=== PATIENT | female | born 1945 | race Caucasian/White ===

== ENCOUNTER 2024-10-15 14:04 | Inpatient (IN) | payer MEDICARE, BC ==
[~2024-10-15] VITALS: Ht 170.2 cm; Wt 57.2 kg
[2024-10-15 14:27] LABS: BASOPHILS % (AUTO) 0.5 % (0.0-2.0); EOSINOPHILS # (AUTO) 0.2 K/uL (0.0-0.7); EOSINOPHILS % (AUTO) 3.1 % (0.0-6.0); HEMATOCRIT 34 % (33-45); HEMOGLOBIN 11.1 g/dL (11.5-14.8); LYMPHOCYTES # (AUTO) 1.5 K/uL (0.8-4.8); LYMPHOCYTES % (AUTO) 25.5 % (20.0-44.0); MEAN CORPUSCULAR HEMOGLOBIN 31 PG (26.0-33.0); MEAN CORPUSCULAR HGB CONC 33 g/dl (31.0-36.0); MEAN CORPUSCULAR VOLUME 96 fL (82-100); MONOCYTES # (AUTO) 0.5 K/uL (0.1-1.30); MONOCYTES % (AUTO) 9.6 % (2.0-12.0); NEUTROPHILS # (AUTO) 3.5 K/uL (1.8-8.9); NEUTROPHILS % (AUTO) 61.3 % (43.0-81.0); PLATELET COUNT (AUTO) 250 K/uL (150-450); RED BLOOD CELL COUNT(AUTO) 3.57 MIL/uL (4.0-5.2); RED CELL DISTRIBUTION WIDTH 14.9 % (11.5-15.0); WHITE BLOOD COUNT (AUTO) 5.7 K/uL (4.3-11.0)
[2024-10-15] MEDS: IV NS 0.9% 1,000 ML BAG IV ONE (14:38)
[2024-10-15 14:43] LABS: INR 1.17 (0.91-1.10); PARTIAL THROMBOPLASTIN TIME 24.7 SEC (24.3-34.3); PROTHROMBIN TIME 11.9 SECS (9.2-11.1)
[2024-10-15 14:48] LABS: LACTIC ACID 3.6 mmol/L (0.4-2.0)
[2024-10-15 14:49] LABS: CALCIUM, SERUM 8.1 mg/dL (8.5-10.1); CARBON DIOXIDE 23 mmol/L (21-32); CHLORIDE 99 mmol/L (98-107); CREATININE 1.2 mg/dL (0.6-1.3); GLUCOSE 116 mg/dL (74-106); POTASSIUM 4.3 mmol/L (3.5-5.1); SODIUM SERUM 132 mmol/L (136-145); UREA NITROGEN, BLOOD 26 mg/dL (7-18)
[2024-10-15 14:53] LABS: ALANINE AMINOTRANSFERASE 89 U/L (12-78); ALBUMIN 2.7 g/dL (3.4-5.0); ALKALINE PHOSPHATASE 195 U/L (46-116); ASPARTATE AMINOTRANSFERASE 94 U/L (15-37); BILIRUBIN,DIRECT 0.1 mg/dL (0.0-0.2); BILIRUBIN,TOTAL 0.3 mg/dL (0.2-1.0); TOTAL PROTEIN, SERUM 6.2 g/dL (6.4-8.2)
[2024-10-15 16:36] LABS: APPEARANCE,URINE CLEAR (CLEAR); BILIRUBIN,URINE NEGATIVE (NEGATIVE); BLOOD, URINE NEGATIVE Ery/uL (NEGATIVE); COLOR,URINE YELLOW (YELLOW); KETONES,URINE NEGATIVE (NEGATIVE); LEUKOCYTE ESTERASE ,URINE 2+ (NEGATIVE); NITRITE, URINE POSITIVE (NEGATIVE); PROTEIN,URINE NEGATIVE (NEGATIVE); UGLUCOSE NEGATIVE (NEGATIVE); UROBILINOGEN,URINE 0.2 EU/dL (0.2)
[2024-10-15 16:48] LABS: ADD URINE CULTURE YES; BACTERIA,URINE 2+ /HPF (None Seen); MUCUS,URINE Few /LPF (None Seen); RBC,URINE 0-2 /HPF (0-2)
[2024-10-15] MEDS ORDERED: ZOLP10TA2 PO (17:39)
[2024-10-15] MEDS ORDERED: ASPI-1420 PO (17:39)
[2024-10-15] MEDS ORDERED: VENL75CA62 PO (17:39)
[2024-10-15] MEDS ORDERED: HYDR-4076 PO (17:39)
[2024-10-15] MEDS ORDERED: FOLI0.8T3 PO (17:39)
[2024-10-15] MEDS ORDERED: ALEN35TA51 PO (17:39)
[2024-10-15] MEDS ORDERED: FURO20TA4 PO (17:39)
[2024-10-15] MEDS ORDERED: PRIM250T32 (17:39)
[2024-10-15] MEDS ORDERED: DIGO125T PO (17:39)
[2024-10-15] MEDS ORDERED: VALS160T29 PO (17:39)
[2024-10-15] MEDS ORDERED: LORA-258 PO (17:39)
[2024-10-15] MEDS ORDERED: CARV25TA2 PO (17:39)
[2024-10-15] MEDS ORDERED: CYAN100T9 PO (17:39)
[2024-10-15] MEDS ORDERED: AMLO-212 PO (17:39)
[2024-10-15] MEDS ORDERED: HYDR-3976 PO (17:39)
[2024-10-15] MEDS ORDERED: AMIO200T5 PO (17:39)
[2024-10-15] MEDS ORDERED: PANT40TA49 PO (17:39)
[2024-10-15] MEDS ORDERED: LEVO75TA PO (17:39)
[2024-10-15] MEDS ORDERED: Z GUARD REMEDY 4 OZ OINT TP PRN (18:00)
[2024-10-15] MEDS ORDERED: MAG HYDROX/AL HYDROX/SIMETH 30 ML UDC PO PRN (18:00)
[2024-10-15] MEDS ORDERED: MAGNESIUM HYDROXIDE 30 ML UDC PO PRN (18:00)
[2024-10-15 18:25] VITALS: BP 167/70; TEMP 98.1; O2SAT 97
[2024-10-15 20:00] VITALS: BP 134/56; TEMP 97.9; O2SAT 95
[2024-10-15] MEDS: IV NS 0.9% 1,000 ML IV PRN (20:54)
[2024-10-15 21:48] VITALS: BP 134/56; TEMP 97.9; O2SAT 95
[2024-10-16] VITALS (7 sets, daily range): BP systolic 123–190; BP diastolic 50–84; TEMP 97.3–98.2; O2SAT 92–97
[2024-10-16] MEDS: ACETAMINOPHEN 325 MG TABLET PO PRN (06:38)
[2024-10-16 07:10] LABS: BASOPHILS % (AUTO) 0.6 % (0.0-2.0); EOSINOPHILS # (AUTO) 0.3 K/uL (0.0-0.7); EOSINOPHILS % (AUTO) 4.5 % (0.0-6.0); HEMATOCRIT 34 % (33-45); HEMOGLOBIN 11.3 g/dL (11.5-14.8); LYMPHOCYTES # (AUTO) 1.9 K/uL (0.8-4.8); LYMPHOCYTES % (AUTO) 31.4 % (20.0-44.0); MEAN CORPUSCULAR HEMOGLOBIN 31 PG (26.0-33.0); MEAN CORPUSCULAR HGB CONC 33 g/dl (31.0-36.0); MEAN CORPUSCULAR VOLUME 95 fL (82-100); MONOCYTES # (AUTO) 0.6 K/uL (0.1-1.30); MONOCYTES % (AUTO) 9.6 % (2.0-12.0); NEUTROPHILS # (AUTO) 3.3 K/uL (1.8-8.9); NEUTROPHILS % (AUTO) 53.9 % (43.0-81.0); PLATELET COUNT (AUTO) 269 K/uL (150-450); RED BLOOD CELL COUNT(AUTO) 3.63 MIL/uL (4.0-5.2); WHITE BLOOD COUNT (AUTO) 6.1 K/uL (4.3-11.0)
[2024-10-16 07:30] LABS: CALCIUM, SERUM 7.7 mg/dL (8.5-10.1); MAGNESIUM 1.9 mg/dL (1.8-2.4); POTASSIUM 3.9 mmol/L (3.5-5.1)
[2024-10-16 07:43] LABS: THYROID STIMULATING HORMONE 3.26 uIU/mL (0.358-3.74)
[2024-10-16] MEDS: VENLAFAXINE XR 75 MG CAP.SR.24H PO SCH (10:00)
[2024-10-16] MEDS ORDERED: HYDROCODONE/APAP 7.5/325MG 1 EACH TABLET PO PRN ×2 (10:00)
[2024-10-16] MEDS: AMIODARONE HCL 200 MG TABLET PO SCH (10:17)
[2024-10-16] MEDS: CARVEDILOL 12.5 MG TABLET PO SCH (10:18)
[2024-10-16] MEDS: PANTOPRAZOLE 40 MG TABLET.DR PO SCH (10:20)
[2024-10-16] MEDS: DIGOXIN 0.125 MG TABLET PO SCH (10:20)
[2024-10-16] MEDS: CYANOCOBALAMIN 100 MCG TABLET PO SCH (10:21)
[2024-10-16] MEDS: LEVOTHYROXINE SODIUM 75 MCG TABLET PO SCH (10:21)
[2024-10-16] MEDS: PRIMIDONE 250 MG TABLET PO SCH (11:52)
[2024-10-16] MEDS: HYDROCODONE/APAP 10/325MG TABLET PO PRN (13:10)
[2024-10-16] MEDS: AMLODIPINE BESYLATE 5 MG TABLET PO SCH (18:14)
[2024-10-16] MEDS ORDERED: AMLODIPINE BESYLATE 5 MG TABLET PO SCH (21:00)
[2024-10-16] MEDS: ZOLPIDEM TARTRATE 5 MG TABLET PO PRN (22:35)
[2024-10-17] VITALS (15 sets, daily range): BP systolic 137–175; BP diastolic 59–80; TEMP 97.5–98.1; O2SAT 92–99
[2024-10-17] MEDS: ALBUTEROL FS 2.5 MG/3 ML VIAL.NEB NEB SCH ×2 (03:41→20:05)
[2024-10-17] MEDS: ONDANSETRON HCL/PF 4 MG/2 ML VIAL IVP PRN (03:46)
[2024-10-17] MEDS ORDERED: ALBUTEROL FS 2.5 MG/0.5 ML VIAL.NEB NEB PRN (09:30)
[2024-10-17] MEDS: ASPIRIN EC 81 MG TABLET.DR PO SCH (09:48)
[2024-10-17] MEDS: methylPREDNISolone SOD SUCC 125 MG/2ML VIAL IV SCH (14:31)
[2024-10-17] MEDS ORDERED: hydrALAZINE HCL 25 MG TABLET PO PRN (17:30)
[2024-10-17] MEDS: VALSARTAN 80 MG TABLET PO SCH (18:00)
[2024-10-17] MEDS: IPRATROPIUM NEB FS 0.5 MG/2.5 ML AMPUL.NEB NEB SCH (20:05)
[2024-10-17] MEDS: LORAZEPAM 0.5 MG TABLET PO PRN (21:30)
[2024-10-18] VITALS (9 sets, daily range): BP systolic 115–158; BP diastolic 52–68; TEMP 97.7–98.1; O2SAT 95–99
[2024-10-18 07:16] LABS: BASOPHILS % (AUTO) 0.5 % (0.0-2.0); EOSINOPHILS # (AUTO) 0.2 K/uL (0.0-0.7); EOSINOPHILS % (AUTO) 3.5 % (0.0-6.0); HEMATOCRIT 33 % (33-45); HEMOGLOBIN 10.9 g/dL (11.5-14.8); LYMPHOCYTES # (AUTO) 1.8 K/uL (0.8-4.8); LYMPHOCYTES % (AUTO) 32.3 % (20.0-44.0); MEAN CORPUSCULAR HEMOGLOBIN 31 PG (26.0-33.0); MEAN CORPUSCULAR HGB CONC 33 g/dl (31.0-36.0); MEAN CORPUSCULAR VOLUME 95 fL (82-100); MONOCYTES # (AUTO) 0.6 K/uL (0.1-1.30); MONOCYTES % (AUTO) 10.6 % (2.0-12.0); NEUTROPHILS % (AUTO) 53.1 % (43.0-81.0); PLATELET COUNT (AUTO) 255 K/uL (150-450); RED BLOOD CELL COUNT(AUTO) 3.48 MIL/uL (4.0-5.2); RED CELL DISTRIBUTION WIDTH 15.1 % (11.5-15.0); WHITE BLOOD COUNT (AUTO) 5.6 K/uL (4.3-11.0)
[2024-10-18 07:31] LABS: ALBUMIN 2.7 g/dL (3.4-5.0); BILIRUBIN,TOTAL 0.4 mg/dL (0.2-1.0); CALCIUM, SERUM 7.8 mg/dL (8.5-10.1); CREATININE 0.6 mg/dL (0.6-1.3); MAGNESIUM 1.9 mg/dL (1.8-2.4); PHOSPHORUS 2.3 mg/dL (2.5-4.9); POTASSIUM 3.9 mmol/L (3.5-5.1)
[2024-10-18] MEDS ORDERED: ALBU18HF2 INH (10:15)
[2024-10-18] MEDS ORDERED: VALS80TA31 PO (10:15)
[2024-10-18] MEDS ORDERED: PRED20TA PO (10:15)
== END 2024-10-18 14:14 | disposition home or self-care (01) | DRG 312 ==
LOC: ER 14:10 → TELE1 17:25
PROVIDERS: ADMIT Internal Medicine; ATTEND Internal Medicine
DX: I95.2 Hypotension due to drugs (principal); E87.1 Hypo-osmolality and hyponatremia; J45.901 Unspecified asthma with (acute) exacerbation; J98.11 Atelectasis; T46.0X5A Adverse effect of cardiac-stimulant glycosides and drugs of similar action, initial encounter; Y92.89 Other specified places as the place of occurrence of the external cause; T46.2X5A Adverse effect of other antidysrhythmic drugs, initial encounter; I48.0 Paroxysmal atrial fibrillation; E03.9 Hypothyroidism, unspecified; Z79.890 Hormone replacement therapy; E86.9 Volume depletion, unspecified; E78.5 Hyperlipidemia, unspecified; K21.9 Gastro-esophageal reflux disease without esophagitis; Z88.1 Allergy status to other antibiotic agents; J45.909 Unspecified asthma, uncomplicated
CPT/HCPCS: 36415; 71045-TC; 71250-TC; 80048-TC; 80053-TC; 80076-TC; 81001; 82962-TC; 83605-TC; 83735-TC; 84100-TC; 84443-TC; 84484-TC; 85025-TC; 85730-TC; 87040-TC; 87086-TC; 87186-TC; 93307-TC; 93880-TC; 94799-TC; 97116-TC; A4223; G0378; J2405; J2919; J3490; J7030